=== PATIENT | female | born 1970 | race Caucasian/White ===

== ENCOUNTER 2016-12-07 17:01 | Emergency (ER) | payer MEDICAID ==
[~2016-12-07] VITALS: Ht 167.6 cm; Wt 86.0 kg
[~2016-12-07 17:01] MED LIST: ACID1TAB7 PO; ALBU18HF INH; AMLO5TAB2 PO; FLUT1AER INH; LEVO750T26 PO; LISI-167 PO; METH4TAB2 PO; METR500T PO
[2016-12-07] MEDS ORDERED: CARV25TA12 PO (17:25)
[2016-12-07] MEDS ORDERED: HYDR25TA6 PO (17:25)
[2016-12-07] MEDS ORDERED: LOSA25TA5 PO (17:25)
[2016-12-07] MEDS ORDERED: POTA20TA89 PO (17:25)
[2016-12-07] MEDS ORDERED: FAMOTIDINE 20 MG/2 ML IVP ONE (17:30)
[2016-12-07] MEDS ORDERED: SODIUM CHLORIDE 0.9% 1,000ML IVBOLUS ONE (17:30)
[2016-12-07] MEDS ORDERED: ONDANSETRON 2MG/ML, 2ML IVPush ONE (17:30)
[2016-12-07] MEDS ORDERED: SODIUM CHLORIDE FLUSH 10ML SYR IVF ONE (17:30)
[2016-12-07] MEDS ORDERED: FAMOTIDINE 20 MG/2 ML ONE (17:32)
[2016-12-07] MEDS ORDERED: ONDANSETRON 2MG/ML, 2ML ONE (17:32)
[2016-12-07 17:33] LABS: HEMATOCRIT 41.5 % (34.6-47.8); WHITE BLOOD COUNT 13.7 x10^3/uL (3.4-10)
[2016-12-07 17:46] LABS: BLOOD UREA NITROGEN 18 mg/dL (7-18)
[2016-12-07 17:50] LABS: ASPARTATE AMINO TRANSFERASE 21 U/L (15-37)
[2016-12-07] MEDS ORDERED: MAGNESIUM SULFATE 1 GM in SODIUM CHLORIDE 0.9% 50 ML IV ONE (18:00)
[2016-12-07] MEDS ORDERED: POTASSIUM CHLORIDE 20 MEQ TAB.ER.PRT PO ONE (18:00)
[2016-12-07] MEDS ORDERED: POTASSIUM CHLORIDE 20 MEQ TAB.ER.PRT ONE (18:43)
[2016-12-07 20:35] VITALS: BP 130/55
== END 2016-12-07 20:51 | disposition home or self-care (01) ==
LOC: ED 20:44
DX: E87.6 Hypokalemia (principal); R11.2 Nausea with vomiting, unspecified; F10.120 Alcohol abuse with intoxication, uncomplicated; I10 Essential (primary) hypertension; E11.9 Type 2 diabetes mellitus without complications; F17.200 Nicotine dependence, unspecified, uncomplicated
CPT/HCPCS: 36415; 74020; 80053; 80307; 83690; 85025; 93005; 96361; 96365; 96375; 99285; J2405; J3475; J7030; G0479; S0028

== ENCOUNTER 2018-08-24 11:31 | Emergency (ER) | payer MEDICAID ==
[~2018-08-24] VITALS: Ht 167.6 cm; Wt 78.3 kg
[~2018-08-24 11:31] MED LIST changes: +AMLO-150 PO; -AMLO5TAB2 PO; +CARV25TA12 PO; +HYDR25TA6 PO; +LOSA25TA25 PO; +POTA20TA89 PO
--- NOTE | 2018-08-24 11:52 | NUR ---
CARE AID: PT TO ROOM FROM YOLI DIAZ
--- NOTE | 2018-08-24 12:00 | NUR ---
ERP AT NOW.
[2018-08-24 12:25] LABS: MEAN CORPUSCULAR HEMOGLOBIN 18.4 pg (27.0-34.8); MEAN CORPUSCULAR VOLUME 66.9 fL (80-100); MEAN PLATELET VOLUME 7.9 fL (7.4-10.4); PLATELET COUNT 499 x10^3/uL (130-400); RED BLOOD COUNT 3.19 x10^6/uL (3.82-5.3); RED CELL DISTRIBUTION WIDTH 21.4 % (9.6-15.2)
[2018-08-24 12:27] LABS: MEAN CORPUSCULAR HGB CONC 27.6 g/dL (32.4-35.8)
[2018-08-24] MEDS ORDERED: SODIUM CHLORIDE FLUSH 10ML SYR IVF ONE (12:30)
[2018-08-24 12:31] LABS: ALBUMIN 3.5 g/dL (3.4-5.0); ANION GAP 7 mmol/L (5-15); CALCIUM 8.9 mg/dL (8.5-10.1); CHLORIDE 106 mmol/L (98-107); CREATININE 1.13 mg/dL (0.55-1.02)
[2018-08-24 12:37] LABS: ANISOCYTOSIS 2+; BASOPHILS # (AUTO) 0.04 x10^3/uL (0-0.1); BASOPHILS % (AUTO) 0 % (0-1); EOSINOPHILS # (AUTO) 0.12 x10^3/uL (0-0.4); EOSINOPHILS % (AUTO) 1 % (1-7); LYMPHOCYTES # (AUTO) 2.07 x10^3/uL (1-3.4); LYMPHOCYTES % (AUTO) 22 % (22-44); MD MORPH REVIEW ONLY; MONOCYTES # (AUTO) 0.51 x10^3/uL (0.2-0.8); MONOCYTES % (AUTO) 5 % (2-9); NEUTROPHILS # (AUTO) 6.68 x10^3/uL (1.8-6.8); NEUTROPHILS % (AUTO) 71 % (42-75)
[2018-08-24 12:38] LABS: HYPOCHROMIA 3+; MICROCYTOSIS 2+; OVALOCYTES 1+; POLYCHROMASIA 1+
[2018-08-24 12:39] LABS: <PLATELET ESTIMATE> INCREASED; <PLT MORPHOLOGY> NORMAL PLT MORPH; TARGET CELLS 1+
--- NOTE | 2018-08-24 13:05 | NUR ---
PT TALKING ON THE PHONE WITH FAMILY. SNACKS AND WATER PROVIDED TO PT PER HER REQUEST. PT AMBULATED TO BR WITHOUT DIFFICULTY.
--- NOTE | 2018-08-24 13:05 | NUR ---
Froilan ashford in [facility] - 08/24/18 at 1305 by LETICIA MANAGER ACQUISITION: PT TO ROOM FROM JOE VIA W/C
[2018-08-24 14:19] VITALS: BP 189/92
--- NOTE | 2018-08-24 14:27 | NUR ---
BLOOD TRANSFUSION STARTED, SEE FLOWSHEET FOR DOCUMENTATION. PT TOLERATING WELL.
[2018-08-24 14:36] VITALS: BP 141/77
--- NOTE | 2018-08-24 15:14 | NUR ---
Patient ambulated with a steady gait to the restroom. No other needs at this time.
[2018-08-24 15:16] VITALS: BP 172/73
--- NOTE | 2018-08-24 15:20 | NUR ---
BLOOD TRANSFUSION FINISHED, NO S/S OF REACTION, PT TOLERATED WELL. ERP WAS IN FOR RECHECK, PT TO BE DISCHARGED WITH FOLLOW-UP.
--- NOTE | 2018-08-24 15:36 | NUR ---
D/C INSTRUCTIONS & F/U APPT RV'WD WITH PT, SHE VERBALIZES UNDERSTANDING. INSTRUCTED PT TO F/U WITH PCP ALSO TO HAVE REPEAT BLOOD COUNT DONE. PT AMBULATED OUT OF ED WITHOUT DIFFICULTY. SIGNIFICANT OTHER TO PICK PT UP.
== END 2018-08-24 15:38 | disposition home or self-care (01) ==
LOC: ED 15:30
DX: N93.8 Other specified abnormal uterine and vaginal bleeding (principal); D62 Acute posthemorrhagic anemia; I10 Essential (primary) hypertension; E11.9 Type 2 diabetes mellitus without complications; J44.9 Chronic obstructive pulmonary disease, unspecified; F32.9 Major depressive disorder, single episode, unspecified; F17.200 Nicotine dependence, unspecified, uncomplicated
CPT/HCPCS: 36415; 36430; 80048; 82040; 85025; 86850; 86900; 86923; 99285; P9016